=== PATIENT | male | born 1980 | race African-American/Black ===

== ENCOUNTER 2021-04-09 10:32 | Emergency (ER) | payer SELFPAY ==
[~2021-04-09] VITALS: Ht 182.9 cm; Wt 90.7 kg
[2021-04-09 11:47] LABS: Basophils # (auto) 0 10 ^3/uL (0-0.2); Basophils % (auto) 0.4 % (0.0-2.0); Eosinophils # (auto) 0 10 ^3/uL (0-0.8); Eosinophils % (auto) 0.4 % (0.0-7.0); Hemoglobin 14.9 g/dL (13.5-17.5); Lymphocytes # (auto) 1.1 10 ^3/uL (0.4-5.4); Lymphocytes % (auto) 13.1 % (10.0-50.0); Mean Corpuscular Hemoglobin 30.3 pg (28.0-32.0); Mean Corpuscular Hgb Conc. 33.9 g/dL (32.0-36.0); Mean Corpuscular Volume 89.3 fL (80.0-100.0); Monocytes # (auto) 0.5 10 ^3/uL (0-1.3); Neutrophils % (auto) 80.1 % (37.0-80.0); Nucleated Red Blood Cells % 0.1 %; Red Blood Cells 4.93 10^6/uL (4.5-5.90); Red Cell Distribution Width 13.8 % (11.8-14.3); White Blood Cell 8.7 10^3/uL (4.4-10.8)
[2021-04-09 11:51] LABS: Calcium 9.5 mg/dL (8.5-10.1); Potassium 3.7 mmol/L (3.5-5.1)
[2021-04-09 11:53] LABS: BUN/Creatinine Ratio 22.5
[2021-04-09 11:56] LABS: Bilirubin, Total 2.1 mg/dL (0.2-1.0)
[2021-04-09 18:01] VITALS: BP 123/72
== END 2021-04-09 18:53 | disposition admitted as inpatient to this hospital (09) ==
LOC: ER 10:32 → EDBD 10:32 → ER 18:53
DX: G93.41 Metabolic encephalopathy (principal)
CPT/HCPCS: 36415; 70450; 71045; 80053; 80320; 84484; 85025